=== PATIENT | male | born 1995 | race Caucasian/White ===

== ENCOUNTER 2017-03-28 22:07 | Emergency (ER) | payer OTHER ==
[~2017-03-28] VITALS: Ht 177.8 cm; Wt 97.5 kg
[2017-03-29] MEDS ORDERED: LEVSIN/SL0.125 MG PO (01:44)
[2017-03-29] MEDS ORDERED: ZOFRAN4 MG PO (01:44)
[2017-03-29] MEDS ORDERED: PEPCID40 MG PO (01:44)
== END 2017-03-29 01:44 ==
LOC: ER 22:07
DX: K52.89 Other specified noninfective gastroenteritis and colitis (principal)

== ENCOUNTER → 2019-01-13 | Emergency (ER) | payer OTHER ==
[~2019-01-13] VITALS: Ht 180.3 cm; Wt 113.4 kg
[~2019-01-13] MED LIST: LEVSIN/SL0.125 MG PO; PEPCID40 MG PO; ZOFRAN4 MG PO
== END | disposition home or self-care (01) ==
LOC: ER 03:04
DX: L27.1 Localized skin eruption due to drugs and medicaments taken internally (principal); T36.0X5A Adverse effect of penicillins, initial encounter

== ENCOUNTER 2019-11-27 18:40 | Emergency (ER) | payer OTHER ==
[~2019-11-27] VITALS: Ht 180.3 cm; Wt 113.4 kg
== END 2019-11-27 21:50 | disposition home or self-care (01) ==
LOC: ER 18:40
DX: B27.09 Gammaherpesviral mononucleosis with other complications (principal); B27.89 Other infectious mononucleosis with other complication; Z20.828 Contact with and (suspected) exposure to other viral communicable diseases

== ENCOUNTER 2021-07-04 15:12 | Emergency (ER) | payer OTHER ==
[~2021-07-04] VITALS: Ht 180.3 cm; Wt 113.4 kg
[2021-07-04] MEDS ORDERED: LEXAPRO5 MG PO (15:32)
== END 2021-07-04 18:56 | disposition home or self-care (01) ==
LOC: ER 15:12
DX: M25.562 Pain in left knee (principal); R07.89 Other chest pain; V89.2XXA Person injured in unspecified motor-vehicle accident, traffic, initial encounter